=== PATIENT | male | born 1940 | race Asian ===

== ENCOUNTER 2023-02-27 05:04 | Outpatient (CLI) | payer MEDICARE, OTHER | END 2023-02-27 05:05 | disposition critical access hospital (66) | LOC: EMS 05:04 | DX: R04.0 Epistaxis (principal) | CPT/HCPCS: A0425; A0429 ==

== ENCOUNTER 2023-02-27 22:02 | Emergency (ER) | payer MEDICARE, OTHER ==
[2023-02-27] MEDS ORDERED: TRANEXAMIC ACID 1,000 MG/10 ML VIAL NAS STA (22:08)
[2023-02-27] MEDS ORDERED: OXYMETAZOLINE HCL 100 SPRAYS BOTTLE NAS STA (22:08)
[2023-02-27] MEDS ORDERED: SILVER NITRATE APPLICATOR TOP STA (22:09)
[2023-02-27 22:25] VITALS: O2SAT 97
[2023-02-27] MEDS ORDERED: KETOROLAC 10 MG TABLET PO STA ×2 (22:26→22:40)
--- NOTE | 2023-02-27 22:27 | ED Physician Documentation ---
History of Present Illness - Stated complaint Stated Complaint: CAMARGO - Chief complaint Chief Complaint: Heent - History obtained from History obtained from: Patient, Family ( and caregiver Germania) - Additonal information Additional information: 82yM with recent visit yesterday for epistaxis with L naris rhinorocket placement presents now for sinus pressure keeping him from sleeping. patient states the nasal packing is making it hard for him to breathe through his nose and when he breathes through his mouth he gets uncomfortable. patient also feels a tickle at the back of the throat and wants to check the rhinorocket is functioning. .denies fever. denies spitting out clots or blood. denies active bleeding from rhinorocket. PD PAST MEDICAL HISTORY - Past Medical History Cardiovascular: Hypertension - Present Medications Home Medications: Ambulatory Orders Medication Instructions Recorded Confirmed Amlodipine Besylate [Norvasc] 10 mg PO DAILY 02/27/23 02/27/23 Ketorolac [Toradol] 10 mg PO Q6H PRN #15 tablet 02/27/23 Latanoprost 0.005% Ophth Drops 1 drops OPTH QPM 02/27/23 02/27/23 [Xalatan Ophth Drops] Simvastatin [Zocor] 40 mg PO DAILY PM 02/27/23 02/27/23 Valsartan [Diovan] 80 mg PO DAILY 02/27/23 02/27/23 carvediloL [Coreg] 6.25 mg PO BID 02/27/23 02/27/23 methIMAzole [Methimazole] 5 mg PO DAILY 02/27/23 02/27/23 - Allergies Allergies/Adverse Reactions: Allergies Allergy/AdvReac Type Severity Reaction Status Date / Time No Known Drug Allergies Allergy Verified 02/27/23 22:06 - Social History Does the pt smoke?: No Smoking Status: Never smoker PD ED PE NORMAL - Vitals Vital signs reviewed: Yes - General General: Alert and oriented X 3, No acute distress, Well developed/nourished - HEENT HEENT: Atraumatic, PERRL, EOMI, Moist mucous membranes, Pharynx benign, Other (L naris with anterior rhinorocket packing in place without active bleeding.) - Neck Neck: Supple, no meningeal sign - Cardiac Cardiac: RRR - Respiratory Respiratory: No respiratory distress, Clear bilaterally, Other (scant BL wheezing. no increased wob) Results - Vitals Vitals: Vital Signs - 24 hr 02/27/23 02/27/23 22:03 22:06 Temperature 36.3 C L Heart Rate 69 80 Respiratory 24 18 Rate Blood Pressure 140/70 H 136/74 H O2 Saturation 100 97 Oxygen O2 Source Room air PD Medical Decision Making - ED course ED course: 82yM presents to the ED due to pain and sinus pressure from L sided rhinorocket. patient states the pain has backed up behind his eyes and requests pain meds. states he cannot take opiates. After confirming no history of GIB or renal issues I prescribed very brief rx for toradol. not ideal given his recent epistaxis but this will constitute a short term solution until he can see ENT. return precautions given. Departure - Departure Disposition: 01 Home, Self Care Clinical Impression: Sinus pressure Condition: Stable Instructions: Headaches Sinus, ED Nasal Packing Anterior Removable Prescriptions: Ketorolac [Toradol] 10 mg PO Q6H PRN #15 tablet PRN Reason: Pain Comments: You were seen in the emergency department for sinus pressure associated with your nasal packing. The packing is in place and should remain until your appointment with ent. A prescription for toradol, an anti-inflammatory pain medicine was sent to [facility] in [place]. Please return to the emergency department if you have any new or worsening symptoms or other concerns. Forms: PCP List
[2023-02-27 22:43] VITALS: BP 121/65
== END 2023-02-27 22:48 | disposition home or self-care (01) ==
LOC: ED 22:02
DX: R09.81 Nasal congestion (principal); R04.0 Epistaxis; I10 Essential (primary) hypertension
CPT/HCPCS: 30901; 36415; 85025; 85610; 99283; 99284; A9270